=== PATIENT | male | born 1970 | race African-American/Black ===

== ENCOUNTER 2016-06-30 13:40 | Emergency (ER) | payer OTHER ==
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
[~2016-06-30 13:40] MED LIST: CORDARONE200 M1 PO; NO MEDICATIONS
[2016-06-30 14:06] LABS: PARTIAL THROMBOPLASTIN TIME 28.2 SECONDS (23.5-31.3); PROTHROMBIN TIME (PATIENT) 10.7 SECONDS (9.6-11.5)
== END 2016-06-30 14:15 | disposition home or self-care (01) ==
LOC: CFTX 13:40
PROVIDERS: Physician Assistant
DX: S13.4XXA Sprain of ligaments of cervical spine, initial encounter (principal); S23.3XXA Sprain of ligaments of thoracic spine, initial encounter; S50.312A Abrasion of left elbow, initial encounter; S50.311A Abrasion of right elbow, initial encounter; S60.512A Abrasion of left hand, initial encounter; S00.81XA Abrasion of other part of head, initial encounter; I10 Essential (primary) hypertension; Z87.891 Personal history of nicotine dependence; Y04.0XXA Assault by unarmed brawl or fight, initial encounter; Y92.69 Other specified industrial and construction area as the place of occurrence of the external cause; Y99.0 Civilian activity done for income or pay
CPT/HCPCS: 36415; 72040; 72072; 73030; 85610; 85730; 99284